=== PATIENT | female | born 1970 | race Caucasian/White ===

== ENCOUNTER → 2024-08-16 08:26 | Outpatient (REF) | payer BC, SELFPAY | LOC: HWWDC 08:26 | PROVIDERS: ATTENDING PHYSICIAN Obstetrics & Gynecology Gynecology | DX: Z12.31 Encounter for screening mammogram for malignant neoplasm of breast (principal) | CPT/HCPCS: 77063; 77067 ==

== ENCOUNTER → 2024-09-05 09:17 | Outpatient (REF) | payer BC, SELFPAY | LOC: WDC 09:17 | PROVIDERS: ATTENDING PHYSICIAN Obstetrics & Gynecology Gynecology | DX: R92.8 Other abnormal and inconclusive findings on diagnostic imaging of breast (principal) | CPT/HCPCS: 76642 ==

== ENCOUNTER 2024-09-17 13:27 | Emergency (ER) | payer BC, SELFPAY ==
[2024-09-17 13:30] VITALS: BP 124/76
--- NOTE | 2024-09-17 13:41 | ED.GENMED ---
History of Present Illness
General
Chief Complaint: Breathing Problem
Source: patient
Exam Limitations: none
Time Seen by Provider: 09/17/24 13:40
History of Present Illness
History of Present Illness:
53yoF with a prior history of hypothyroidism no longer on medications presenting for evaluation of palpitations. Patient has been feeling increasingly fatigued over the past month or so. She woke up this morning and noticed some shortness of
breath and palpitations. She states it felt like her heart was racing. She was having a hard time standing due to her symptoms. She went to urgent care for evaluation and was sent to the ED for further care. Her palpitations and dyspnea have
since resolved but she now has a mild chest tightness. No syncope.
Phy Exam
General Physical Exam
General Presentation: well appearing and no apparent distress
General age: appears stated age
General Skin: warm and dry
General Habitus: normal
General Mental: alert
ENT Exam
ENT Exam: normocephalic
Cardiovascular Exam
Cardiovascular Exam: regular rate/rhythm, no edema and no murmur
Pulmonary Exam
Pulmonary Exam: lungs clear, no respiratory distress, no rales, no crackles, no rhonchi and other (Lungs CTA. Speaking in full sentences without difficulty. )
Neurological Exam
Neurological Exam: alert
[place] Coma Scale
Eye Opening: Spontaneous
Verbal Response: Oriented
Motor Response: Obeys Commands
GCS Total Score: 15
Skin Exam
Skin Exam: normal color and warm/dry
Psychiatric Exam
Psychiatric Exam: normal mood/affect
Scores
Heart Failure Risk
Heart Failure Risk Score: Not Applicable
Course
Orders/Labs/Results
Orders:
Orders
09/17/24 13:29
Electrocardiogram (*1) Urgent
Reason for Study: Palpitations
EKG- Treatment ONCE
09/17/24 13:55
Cardiac Monitoring- Treatment ONCE
CR Chest - 2 Views Urgent
Comment:
Reason For Exam: SOB
09/17/24 14:07
Complete Blood Count/With Diff Urgent
Comprehensive Metabolic Panel Urgent
Magnesium Urgent
TSH Reflex To Free T4 Urgent
Troponin I Urgent
Abnormal Lab Results
09/17/24
14:07
MCH 31.6 H pg
(27.0-31.0)
Absolute Lymphs (auto) 1.1 L 10^3/uL
(1.2-3.4)
Lymphocytes % 17.0 L %
(20.5-51.1)
Total Protein 6.2 L g/dl
(6.3-8.2)
09/17/24 14:07
09/17/24 14:07
Vital Signs
Initial and Last Documented VS:
Initial Vital Signs
Temp Pulse Resp BP Pulse Ox
98.0 F 64 16 124/76 98
09/17/24 13:30 09/17/24 13:30 09/17/24 13:30 09/17/24 13:30 09/17/24 13:30
Last Documented Vital Signs
Temp Pulse Resp BP Pulse Ox
98.0 F 76 16 110/75 97
09/17/24 13:30 09/17/24 15:52 09/17/24 15:52 09/17/24 15:52 09/17/24 15:52
MDM/Problems Addressed
Differential Diagnosis Includes:
53yoF here with fatigue x 1 month. Started with SOB and palpitations this morning which has now resolved. Sent in by urgent care. VSS. Oxygen saturation 98% on room air. She is well-appearing in no acute distress. Lungs clear to auscultation and
she is speaking in full sentences. Differential diagnosis includes but is not limited to: Arrhythmia, ACS, symptomatic anemia, thyroid dysfunction
Initial ED plan: Check cardiac labs, magnesium, TSH, EKG, and CXR.
*EKG
Interpreted by ED Provider?: Yes
EKG Intrepretation Date: 09/17/24
Heart Rate: 67
Rate: normal
Rhythm: sinus
[place]: normal axis
Interval: normal interval
QRS Pattern: normal QRS
Ischemia: no ischemia
*Critical Care Note
Total Time (30-74mins, 75-104mins- exclusive of procedures): Not Applicable
Update Note
Update Note:
Labs overall unremarkable including normal hemoglobin and TSH. EKG shows normal sinus rhythm without ischemic changes or ectopy and troponin within normal limits. Chest x-ray is clear. Repeat vitals are stable. No indication for hospitalization.
Patient has an appointment scheduled with her PCP in 2 days so will have close follow-up. Patient in agreement with plan and was discharged in stable condition.
ED Attending Note
-
Portions of this chart may have been created with voice recognition software.� Occasional wrong word or��sound alike� substitutions may have occurred due to the inherent limitations of voice recognition software.
Discharge Plan
Departure
Patient Disposition: Home (Routine Discharge)
Date of Disposition: 09/17/24
Time of Disposition: 15:44
Patient with high blood pressure during this ER visit?: No
Discharge Problem:
Fatigue, Palpitations
Instructions: Fatigue - ED discharge instructions
Referrals:
Rick Day DO [Family Provider] -
Activity Restrictions/Additional Instructions:
Please follow-up with your family doctor on Thursday as previously scheduled. Return to the ER with any new or worsening symptoms.
Interventions
Interventions:
*Risk Screen - Suicide Last Done: 09/17/24 13:30
*General Assessment Last Done: 09/17/24 13:29
*Neglect/Abuse Screening Last Done: 09/17/24 13:30
*ED- Fall Risk Assessment Last Done: 09/17/24 15:56
*Nursing Disposition Last Done: 09/17/24 15:56
ED- Cardiac Assessment Last Done: 09/17/24 13:29
ED- Pulmonary Assessment Last Done: 09/17/24 13:29
Discharge Date and Time
Discharge Date/Time: 09/17/24 15:56
Print Language: YI
[2024-09-17 14:26] LABS: % Basophils 0.5 % (0-2); % Eosinophils 0.8 % (0-6); % Immature Granulocytes 0.2 % (0-0.5); % Monocytes 6.4 % (1.7-9.3); % Neutrophils 75.1 % (42.2-75.2); Absolute Eosinophils 0.1 10^3/uL (0-0.7); Absolute Lymphocytes 1.1 10^3/uL (1.2-3.4); Absolute Monocytes 0.4 10^3/uL (0.1-0.6); Absolute Neutrophils 4.9 10^3/uL (1.4-6.5); Hematocrit 38.6 % (37.0-47.0); Hemoglobin 13.8 g/dL (12.0-16.0); Mean Corp Hgb Conc. 35.8 g/dL (33.0-37.0); Mean Corpuscular Hgb 31.6 pg (27.0-31.0); Mean Corpuscular Volume 88.3 fL (81.0-99.0); Nucleated Red Blood Cells % 0 %; Platelet Count 246 10^3/uL (130-400); Red Blood Cell Count 4.37 10^6/uL (4.20-5.40); Red Cell Dist. Width 12.4 % (11.5-14.5); White Blood Cell Count 6.6 10^3/uL (4.8-10.8)
[2024-09-17 14:45] LABS: ALT (SGPT) 25 U/L (0-35); AST (SGOT) 23 U/L (14-36); Albumin 3.9 g/dl (3.5-5.0); Alkaline Phosphatase 66 U/L (38-126); Blood Urea Nitrogen 14 mg/dl (7-17); Calcium 9.9 mg/dl (8.4-10.2); Carbon Dioxide 27 mmol/L (22-30); Chloride 106 mmol/L (98-107); Glucose 90 mg/dl (70-99); Magnesium 2.1 mg/dl (1.6-2.3); Potassium 4.1 mmol/L (3.5-5.1); Sodium 139 mmol/L (135-145); Total Bilirubin 0.6 mg/dl (0.2-1.3); Total Protein 6.2 g/dl (6.3-8.2); eGFR > 60.00
[2024-09-17 14:53] LABS: Troponin I < 0.012 ng/ml
[2024-09-17 15:13] LABS: TSH Reflex To Free T4 1.85 uIU/ml (0.47-4.68)
[2024-09-17 15:52] VITALS: BP 110/75
== END 2024-09-17 15:56 | disposition home or self-care (01) ==
LOC: EMR 13:27
PROVIDERS: Physician Assistant; EMERGENCY PHYSICIAN Student in an Organized Health Care Education/Training Program; FAMILY PHYSICIAN Family Medicine
DX: R53.83 Other fatigue (principal); R00.2 Palpitations
CPT/HCPCS: 99285; 71046; 80053; 83735; 84443; 84484; 85025; 93005